=== PATIENT | female | born 1950 | race Caucasian/White ===

== ENCOUNTER 2024-11-02 16:57 | Inpatient (IN) | payer OTHER, MEDICARE ==
[2024-11-02 17:56] LABS: Absolute Eosinophils 0.1 K/uL (0-0.5); Absolute Lymphocytes (CBC) 0.9 K/uL (0.7-4.9); Absolute Monocytes 0.4 K/uL (0.1-1.3); Absolute Neutrophil 3.8 K/uL (1.8-8.0); Basophils % 0.7 % (0-1.3); Eosinophils % 1.4 % (0-4.4); Hematocrit 41.9 % (36.0-45.0); Hemoglobin 14.3 g/dL (12.0-15.0); MCH 30.7 pg (27.0-35.0); MCHC 34.2 g/dL (32.0-36.0); MCV 89.9 fL (80-100); MPV 8.4 fL (7.6-11.3); Monocytes % 7.4 % (3.3-12.3); Neutrophils % 72.5 % (41.7-73.7); Nucleated Red Blood Cells % 0.1 % (0-0); Platelets 179 thou/uL (152-406); RBC Red Blood Cell Count 4.66 M/uL (3.86-4.86); Red Cell Distribution Width 14.2 % (12.1-15.2)
[2024-11-02 18:02] LABS: Specific Gravity 1.025 (1.005-1.030); Urine Bacteria >50 /HPF (<20); Urine Bilirubin NEGATIVE (Negative); Urine Blood Trace (Negative); Urine Clarity Extremely Turbid (Clear); Urine Color Yellow (Yellow); Urine Culture Reflex Order REFLEXED; Urine Glucose NEGATIVE (Negative); Urine Ketones NEGATIVE (Negative); Urine Microscopic Reflex YN ORDER UMIC; Urine Mucus 3+ /HPF (None Seen); Urine Nitrite 2+ (Negative); Urine Protein NEGATIVE (Negative); Urine Urobilinogen Normal (Normal); Urine WBC >50 /HPF (<5); Urine pH 5.5 (5.0-7.0)
[2024-11-02 18:07] LABS: PT Prothrombin Time 17.4 SECONDS (10-13.0); Protime INR 1.56
--- NOTE | 2024-11-02 18:11 | RAD REPORT ---
EXAM: Chest Single View HISTORY: 74 years Female syncope COMPARISON: 10/26/2020 FINDINGS: LUNGS/PLEURA: The lungs are clear. No pleural effusions or pneumothorax. No pulmonary edema. CARDIAC/MEDIASTINUM: Mild cardiomegaly UPPER ABDOMEN: No significant abnormality. BONES: Advanced left shoulder degenerative changes. LINES/TUBES/OTHER: N/A IMPRESSION: No evidence of acute cardiopulmonary disease. No significant change from prior.
[2024-11-02 18:25] LABS: Albumin 3.6 g/dL (3.4-5.0); Albumin/Globulin Ratio 1.2 (1.1-1.8); Anion Gap 8.9 mEq/L (5.0-15.0); Bilirubin Direct 0.2 mg/dL (0-0.2); Bilirubin Indirect, Calculated 0.5 mg/dL (0.2-0.8); Bilirubin Total 0.7 mg/dL (0.2-1.0); Globulin 3.1 g/dL (2.3-3.5); Magnesium 2.1 mg/dL (1.6-2.4); Potassium 3.9 mEq/L (3.5-5.1); Protein, Total 6.7 g/dL (6.4-8.2); Troponin High Sensitivity 5.3 pg/mL (<58.9)
--- NOTE | 2024-11-02 18:34 | RAD REPORT ---
EXAMINATION: Head C Spine Mpr Wo Con CLINICAL INDICATION: Female, 74 years old. SYNCOPE TECHNIQUE: Axial CT images from the skull base to the vertex without intravenous contrast. Axial CT i mages through the cervical spine were obtained without intravenous contrast. Sagittal and coronal reformatted images were created from the data set. Coronal and sagittal reformatted images were creat ed from the data set. One or more of the following dose reduction techniques were used: Automated exposure control, adjustment of the mA and/or kV according to patient size, and/or iterative reconstr uction. Unless otherwise specified, incidental findings do not require dedicated imaging follow-up. [id number]. COMPARISON: No prior exam. FINDINGS: Head: INTRACRANIAL: No acute intracranial hemorrhage. No hydrocephalus. No mass effect or midline shift. No significant white matter disease. VASCULATURE: No visualized abnormalities in the arteries or dural venous sinuses. SCALP/SKULL: No calvarial fracture identified. No acute soft tissue abnormality. SINUSES: The visualized paranasal sinuses are mostly clear. No significant mastoid fluid. Cervical spine: ALIGNMENT: The cervical spine has normal alignment without scoliosis or spondylolisthesis. BONE: Vertebral body heights are maintained. No aggressive osseous lesions. DEGENERATIVE: Multilevel cervical spondylosis with evidence of bilateral neural foraminal narrowing. No high grade central spinal stenosis. SOFT TISSUE: No significant abnormalities in the soft tissue of the neck. The visualized lung apices are clear. IMPRESSION: No acute intracranial abnormality. No acute fracture or traumatic malalignment of the cervical spine.
--- NOTE | 2024-11-02 19:37 | ER ---
Nurse's Notes [facility] Name: Ya Campbell Age: 74 yrs Sex: Female : 1950 Arrival Date: 11/02/2024 Time: 16:57 Bed 14 Private MD: Diagnosis: Syncope;UTI/ Urinary tract infection, site not specified Presentation: 11/02 17:11 Chief complaint: EMS states: FALL WITH UNKNOWN LOC + HIT HEAD NOTED LEFT ABOVE EYE LAC. db IS ON BLOOD THINNERS. REPEATED FALLS STARTED IN AUGUST. Coronavirus screen: Client denies travel out of the [place] in the last 14 days. At this time, the client does not indicate any symptoms associated with coronavirus-19. Ebola Screen: Patient negative for fever greater than or equal to 101.5 degrees Fahrenheit, and additional compatible Ebola Virus Disease symptoms Patient denies exposure to infectious person. Patient denies travel to an Ebola-affected area in the 21 days before illness onset. No symptoms or risks identified at this time. Initial Sepsis Screen: Does the patient meet any 2 criteria? No. Patient's initial sepsis screen is negative. Does the patient have a suspected source of infection? No. Patient's initial sepsis screen is negative. Risk Assessment: Do you want to hurt yourself or someone else? Patient reports no desire to harm self or others. Onset of symptoms was November 02, 2024. 17:11 Method Of Arrival: EMS: [facility] db 17:11 Acuity: CRIS 3 db 20:00 Mechanism of Injury: Fall from standing position. [facility] 20:00 Care prior to arrival: None. Trauma event details: Injury occurred in the county of [address] Triage Assessment: 17:30 General: Appears in no apparent distress. comfortable, Behavior is calm, cooperative. db Derm: Wound noted middle aspect of left eyebrow. 20:00 Pain: Complains of pain in head. [facility] Historical: - Allergies: 17:30 No Known Allergies; db - Home Meds: 17:30 Xarelto oral [Active]; amiodarone oral [Active]; db - PMHx: 17:30 Atrial fibrillation; db - Immunization history:: Adult Immunizations unknown. - Infectious Disease History:: Denies. - Immunization history: Last tetanus immunization: unknown. - Social history:: Smoking status: Patient denies any tobacco usage or history of. Screenin:00 [facility] ED Fall Risk Assessment (Adult) History of falling in the last 3 months, rg5 including since admission Yes- single mechanical fall (1 pt) Confusion or Disorientation No (0 pts) Intoxicated or Sedated No (0 pts) Impaired Gait Yes (1 pt) Mobility Assist Device Used Yes (1 pt) Altered Elimination No (0 pt) Score/Fall Risk Level 0 - 2 = Low Risk Oriented to surroundings, Maintained a safe environment, Hourly rounding (assess needs \T\ fall precautionary measures) done. 20:00 Abuse screen: Denies threats or abuse. Nutritional screening: No deficits noted. rg5 Tuberculosis screening: No symptoms or risk factors identified. Primary Survey: 20:00 NO uncontrolled hemorrhage observed. rg5 20:00 A: The client is awake and alert. The airway is patent. Breathing/Chest: Spontaneous rg5 respiratory effort, equal unlabored respirations, breath sounds clear bilaterally, regular pattern, symmetrical chest rise and fall. Circulation: No external hemorrhage present. Regular and strong central pulse, skin warm/dry/normal color. Disability Pupils are equal, round, reactive to light and accommodation. Client is alert. Exposure/Environment: All clothing and personal items were removed. Forensic evidence collection is not deemed to be indicated at this time. Items placed in patient belonging bag. There is no evidence of uncontrolled external bleeding. 21:00 Reassessment Alertness and Airway: Awake and alert. The airway is patent. Breathing: rg5 Spontaneous respiratory effort, equal unlabored respirations, breath sounds clear bilaterally, regular pattern with symmetrical chest rise and fall. Respiratory effort Spontaneous Breath sounds Clear Respiratory pattern Regular Chest inspection Symmetrical Circulation: No external hemorrhage noted. Regular and strong central pulse, skin warm/dry/normal color. Disability: Pupils Pupils are equal, round, reactive to light and accomodation. Alert. Assessment: 17:30 Reassessment: Patient appears in no apparent distress at this time. PT ASSISTED TO db BEDPAN. Vital Signs: 17:11 BP 133 / 67; Pulse 77; Resp 16; Temp 98; Pulse Ox 98% ; Weight 92.99 kg; Height 5 ft. 8 db in. ; 19:45 BP 142 / 68 Standing; Pulse 76; rg5 19:49 BP 134 / 65 Sitting; Pulse 72; rg5 19:52 BP 138 / 66; Pulse 82; rg5 21:00 BP 125 / 63; Pulse 76; Resp 18; Pulse Ox 100% on R/A; rg5 22:30 BP 131 / 69; Pulse 65; Resp 18; Pulse Ox 100% ; Pain 0/10; rg5 11/03 00:00 BP 148 / 65; Pulse 68; Resp 18; Pulse Ox 100% on R/A; Pain 0/10; rg5 11/02 17:11 Body Mass Index 31.17 (92.99 kg, 172.72 cm) db 22:30 Pain Scale: Adult rg5 11/03 00:00 Pain Scale: Adult rg5 [place] Coma Score: 11/02 20:00 Eye Response: spontaneous(4). Motor Response: obeys commands(6). Verbal Response: rg5 oriented(5). Total: 15. Trauma Score (Adult): 20:00 Eye Response: spontaneous(1); Verbal Response: oriented(1); Motor Response: obeys rg5 commands(2); Systolic BP: > 89 mm Hg(4); Respiratory Rate: 10 to 29 per min(4); [place] Score: 15; Trauma Score: 12 ED Course: 17:11 Patient arrived in ED. db 17:12 Hamilton Roe PA is PHCP. cp 17:13 Lawrence Gray MD is Attending Physician. cp 17:30 Triage completed. db 17:32 Arm band placed on Patient placed in an exam room. Antipyretics given from triage as db ordered by an ER provider. 17:40 Gloria Vigil, RN is Primary Nurse. db 17:46 Initial lab(s) drawn, by wi, sent to lab. Urine collected: clean catch specimen, clear, db EKG done, by ED staff, reviewed by Hamilton BELLA. Inserted saline lock: 20 gauge in right antecubital area, using aseptic technique. Blood collected. Flushed with 10 mL NS. 17:47 XRAY Chest (1 view) In Process Unspecified. EDMS 18:12 CT Head C Spine In Process Unspecified. EDMS 19:36 Kole Bonilla MD is Hospitalizing Provider. cp 20:00 Patient has correct armband on for positive identification. Bed in low position. Call rg5 light in reach. Door closed. Noise minimized. Warm blanket given. 20:00 No provider procedures requiring assistance completed. rg5 20:00 Patient maintains SpO2 saturation greater than 95% on room air. rg5 20:00 Thermoregulation: warm blanket given to patient. rg5 11/03 00:22 Provided Education on: needs for admit. rg5 00:22 Patient admitted, IV remains in place. intact, No redness/swelling at site. rg5 Administered Medications: 11/02 19:49 Drug: NS 0.9% IV 250 ml IV at calculated rate once; to be given as a bolus over 30 rg5 minutes Route: IV; Rate: calculated rate; Site: right antecubital; 20:13 Follow up: IV Status: Completed infusion; IV Intake: 250ml rg5 19:50 Drug: Rocephin IV 1 grams IV at calculated rate once; Given slow IV push per pharmacy rg5 instructions Route: IV; Rate: calculated rate; Site: right antecubital; 20:14 Follow up: IV Status: Completed infusion; IV Intake: 50ml rg5 Medication: 11/03 00:22 VIS not applicable for this client. rg5 Intake: 11/02 20:00 PO: 250ml (Water); Total: 250ml. rg5 20:13 IV: 250ml; Total: 500ml. rg5 20:14 IV: 50ml; Total: 550ml. rg5 Outcome: 19:37 Decision to Hospitalize by Provider. tammy 11/03 00:22 Admitted to Med/surg accompanied by nurse, rg5 Condition: stable Instructed on the need for admit, 00:35 Patient's length of stay in the Emergency Department was greater than 2 hours. rg5 admittedPatient's length of stay extended due to 00:40 Patient left the ED. rg5 Signatures: Dispatcher [employer] EDVT Hamilton Roe PA PA cp Benton, Danielle, RN RN Norbert Pinedo RN RN rg5
--- NOTE | 2024-11-02 19:38 | EDPHYS ---
Physician Documentation [facility] Name: Ya Campbell Age: 74 yrs Sex: Female : 1950 Arrival Date: 11/02/2024 Time: 16:57 Bed 14 Private MD: ED Physician Lawrence Gray HPI: 11/02 17:25 This 74 yrs old Female presents to ER via EMS with complaints of Fall Injury. cp 17:25 Patient is a 74-year-old female with a past medical history significant for chronic cp atrial fibrillation. Patient presents to the emergency department and reports that she got up and started walking toward the kitchen and became lightheaded the next thing she knew she woke up on the floor. Patient denies chest pain, abdominal pain and/or headache prior to waking up on the floor. Historical: - Allergies: 17:30 No Known Allergies; db - Home Meds: 17:30 Xarelto oral [Active]; amiodarone oral [Active]; db - PMHx: 17:30 Atrial fibrillation; db - Immunization history:: Adult Immunizations unknown. - Infectious Disease History:: Denies. - Immunization history: Last tetanus immunization: unknown. - Social history:: Smoking status: Patient denies any tobacco usage or history of. ROS: 17:30 Constitutional: Negative for body aches, chills, fever, poor PO intake, cp 17:30 Eyes: Negative for injury, pain, redness, and discharge, cp 17:30 Neck: Negative for pain with movement, pain at rest, stiffness, 17:30 Cardiovascular: Negative for chest pain, edema, palpitations, 17:30 Respiratory: Negative for cough, shortness of breath, wheezing, 17:30 Abdomen/GI: Negative for abdominal pain, vomiting, diarrhea, constipation, black/tarry stool, rectal bleeding, 17:30 Skin: Positive for laceration(s), of the left temporal area, 17:30 Neuro: Positive for headache, syncope, 17:30 All other systems are negative, Exam: 17:33 Constitutional: The patient appears in no acute distress, alert, awake, cp non-diaphoretic, non-toxic, well developed, well nourished, obese, 17:33 Head/face: Noted is a laceration(s), that is linear, of the left hoahaoism, swelling, cp that is mild, of the left hoahaoism, 17:33 Eyes: Periorbital structures: appear normal, Pupils: equal, round, and reactive to light and accomodation, Extraocular movements: intact throughout, Sclera: no appreciated abnormality, Lids and lashes: appear normal, bilaterally, 17:33 ENT: External ear(s): are unremarkable, Ear canal(s): are normal, clear, TM's: dullness, bilaterally, Nose: is normal, Mouth: Lips: moist, Oral mucosa: moist, Posterior pharynx: Airway: no evidence of obstruction, patent, 17:33 Neck: C-spine: vertebral tenderness, is not appreciated, crepitus, is not appreciated, 17:33 Chest/axilla: Inspection: normal, Palpation: crepitus, is not appreciated, tenderness, is not appreciated, 17:33 Cardiovascular: Rate: normal, Rhythm: regular, 17:33 Respiratory: the patient does not display signs of respiratory distress, Respirations: normal, no use of accessory muscles, no retractions, labored breathing, is not present, Breath sounds: are clear throughout, no decreased breath sounds, no stridor, no wheezing, 17:33 Abdomen/GI: Inspection: abdomen appears normal, Palpation: abdomen is soft and non-tender, in all quadrants, 17:33 Back: vertebral tenderness, is not appreciated, 17:33 Musculoskeletal/extremity: Exam is negative for decreased range of motion, deformity, injury, 17:33 Neuro: Orientation: to person, place, situation, Mentation: able to follow commands, Cerebellar function: Romberg testing is negative, normal finger to nose testing, Motor: moves all fours, strength is normal, 17:52 ECG was reviewed by the Attending Physician. cp Vital Signs: 17:11 BP 133 / 67; Pulse 77; Resp 16; Temp 98; Pulse Ox 98% ; Weight 92.99 kg; Height 5 ft. 8 db in. ; 19:45 BP 142 / 68 Standing; Pulse 76; rg5 19:49 BP 134 / 65 Sitting; Pulse 72; rg5 19:52 BP 138 / 66; Pulse 82; rg5 21:00 BP 125 / 63; Pulse 76; Resp 18; Pulse Ox 100% on R/A; rg5 22:30 BP 131 / 69; Pulse 65; Resp 18; Pulse Ox 100% ; Pain 0/10; rg5 11/03 00:00 BP 148 / 65; Pulse 68; Resp 18; Pulse Ox 100% on R/A; Pain 0/10; rg5 11/02 17:11 Body Mass Index 31.17 (92.99 kg, 172.72 cm) db 22:30 Pain Scale: Adult rg5 11/03 00:00 Pain Scale: Adult rg5 [place] Coma Score: 11/02 20:00 Eye Response: spontaneous(4). Motor Response: obeys commands(6). Verbal Response: rg5 oriented(5). Total: 15. Trauma Score (Adult): 20:00 Eye Response: spontaneous(1); Verbal Response: oriented(1); Motor Response: obeys rg5 commands(2); Systolic BP: > 89 mm Hg(4); Respiratory Rate: 10 to 29 per min(4); [place] Score: 15; Trauma Score: 12 Laceration: 19:50 Wound Repair of 2.5cm ( 1.0in ) subcutaneous laceration to left hoahaoism. Linear shaped.. cp Distal neuro/vascular/tendon intact. Skin closed with thin layer Adhesive skin closure using Dermabond. Patient tolerated well. MDM: 19:37 Medical Screening Exam initiated 19:37 Data reviewed: vital signs, nurses notes, lab test result(s), EKG, radiologic studies, cp CT scan, plain films, and as a result, I will admit patient. 19:37 Consideration of Admission/Observation Patient was admitted/placed on observation. cp Management of patient was discussed with the following: Primary Care Provider: DR Bonilla who will admit after discussion. I considered the following discharge prescriptions or medication management in the emergency department Medications were administered in the Emergency Department. See MAR. Independent interpretation of the following test(s) in the Emergency Department EKG: See my EKG interpretation above. Counseling: I had a detailed discussion with the patient and/or guardian regarding the historical points, exam findings, and any diagnostic results supporting the discharge/admit diagnosis, lab results, radiology results. Response to treatment: the patient's symptoms have markedly improved after treatment, and as a result, I will admit patient. 11/02 17:23 Order name: Basic Metabolic Panel; Complete Time: 18:37 cp 11/02 18:37 Interpretation: Normal except: BUN 22; CRE 1.13; GFR 51. cp 11/02 17:23 Order name: CBC with Diff; Complete Time: 18:37 cp 11/02 19:13 Interpretation: Reviewed. 11/02 17:23 Order name: LFT's; Complete Time: 18:37 cp 11/02 19:13 Interpretation: Normal except: AST 11. cp 11/02 17:23 Order name: Magnesium; Complete Time: 18:37 cp 11/02 17:23 Order name: NT PRO-BNP; Complete Time: 18:37 cp 11/02 18:37 Interpretation: Reviewed. 11/02 17:23 Order name: PT-INR; Complete Time: 18:37 cp 11/02 17:23 Order name: Troponin HS; Complete Time: 18:37 cp 11/02 17:24 Order name: UA Rfx Sujit Cult if indicated; Complete Time: 18:37 cp 11/02 18:38 Interpretation: Normal except: [facility] Extremely Turbid; UBLD Trace; UNIT 2+; UESTR 500; cp UWBC >50; URBC 11-20; UBACT >50; MUCUS 3+. 11/02 18:07 Order name: Urine Culture [facility] 11/02 17:23 Order name: XRAY Chest (1 view); Complete Time: 18:37 cp 11/02 17:23 Order name: CT Head C Spine; Complete Time: 18:37 cp 11/02 20:13 Order name: CONS Physician Consult [facility] 11/02 17:23 Order name: Cardiac monitoring; Complete Time: 17:49 cp 11/02 17:23 Order name: EKG - Nurse/Tech; Complete Time: 17:49 cp 11/02 17:23 Order name: IV Saline Lock; Complete Time: 17:49 cp 11/02 17:23 Order name: Labs collected and sent; Complete Time: 17:49 cp 11/02 17:23 Order name: O2 Per Protocol; Complete Time: 17:49 cp 11/02 17:23 Order name: O2 Sat Monitoring; Complete Time: 17:49 cp 11/02 18:38 Order name: Orthostatics; Complete Time: 19:50 cp 11/02 20:06 Order name: Dermabond; Complete Time: 20:23 cp 11/02 20:06 Order name: Wound Care; Complete Time: 20:13 cp EC:52 Rate is 72 beats/min. Rhythm is regular. [place] interval is prolonged at 212 msec. QRS cp interval is prolonged at 150 msec. QT interval is prolonged. T waves are Inverted in leads aVL, aVR. Interpreted by me. Reviewed by me. Administered Medications: 19:49 Drug: NS 0.9% IV 250 ml IV at calculated rate once; to be given as a bolus over 30 rg5 minutes Route: IV; Rate: calculated rate; Site: right antecubital; 20:13 Follow up: IV Status: Completed infusion; IV Intake: 250ml rg5 19:50 Drug: Rocephin IV 1 grams IV at calculated rate once; Given slow IV push per pharmacy rg5 instructions Route: IV; Rate: calculated rate; Site: right antecubital; 20:14 Follow up: IV Status: Completed infusion; IV Intake: 50ml rg5 Disposition: 11/03 20:55 Chart complete. cp Disposition Summary: 11/02/24 19:37 Hospitalization Ordered Notes: Hospitalization Status: Observation cp Provider: Kole Bonilla cp Location: Telemetry/[facility] (observation) cp Condition: Stable cp Problem: new cp Symptoms: have improved cp Bed/Room Type: Standard cp Room Assignment: [id number](11/02/24 23:52) Diagnosis - Syncope cp - UTI/ Urinary tract infection, site not specified cp Forms: - Medication Reconciliation Form cp - SBAR form cp - Leadership Thank You Letter cp Addendum: 11/06/2024 23:43 Co-signature as Attending Physician, Lawrence Gray MD I reviewed the patient's care r n provided by the Advanced Practice Provider and agree with the diagnosis and treatment plan. Signatures: Dispatcher [employer] Lola Dee RN RN kl Nieto, Roman, MD MD rn Page, Corey, PA PA cp Gloria Vigil RN RN db Gallardo, Rommel, RN RN rg5 Corrections: (The following items were deleted from the chart) 11/02 17:23 17:23 BASIC METABOLIC PANEL+C.LAB.BRZ ordered. EDMS EDMS 17:23 17:23 CBC+H.LAB.BRZ ordered. EDMS EDMS 17:23 17:23 HEPATIC FUNCTION+C.LAB.BRZ ordered. EDMS EDMS 17:23 17:23 MAGNESIUM+C.LAB.BRZ ordered. EDMS EDMS 17:23 17:23 PROBNP+C.LAB.BRZ ordered. EDMS EDMS : 17:23 PROTIME (+INR)+COAG.LAB.BRZ ordered. EDMS EDMS : 17:23 Troponin High Sensitivity+C.LAB.BRZ ordered. EDMS EDMS : 17:23 Chest Single View+RAD.RAD.BRZ ordered. EDMS EDMS 17:24 17:24 Head C Spine MPR Wo Con+CT.RAD.BRZ ordered. EDMS EDMS 23:52 19:37 cp kl
[2024-11-02] MEDS ORDERED: NA CHLORIDE 0.9% 250 ML ONE (19:45)
[2024-11-02] MEDS ORDERED: CEFTRIAXONE 1000 MG/VIAL ONE (19:45)
[2024-11-02] MEDS ORDERED: NA CHLORIDE 0.9% 50 ML ONE (19:45)
[2024-11-02] MEDS ORDERED: DERMABOND SKIN ADHESIVE TOP ONE (20:15)
[2024-11-02] MEDS ORDERED: ONDANSETRON 4 MG/2 ML VIAL IV PRN (21:33)
[2024-11-03 01:22] VITALS: BMI 31.1
[2024-11-03 04:20] LABS: Absolute Eosinophils 0.1 K/uL (0-0.5); Absolute Lymphocytes (CBC) 1.2 K/uL (0.7-4.9); Absolute Monocytes 0.5 K/uL (0.1-1.3); Absolute Neutrophil 4.1 K/uL (1.8-8.0); Basophils % 0.8 % (0-1.3); Hematocrit 39.2 % (36.0-45.0); Hemoglobin 13.3 g/dL (12.0-15.0); MCV 91.2 fL (80-100); Monocytes % 7.8 % (3.3-12.3); Neutrophils % 69.4 % (41.7-73.7); Platelets 162 thou/uL (152-406); RBC Red Blood Cell Count 4.29 M/uL (3.86-4.86); Red Cell Distribution Width 14.2 % (12.1-15.2)
[2024-11-03 04:43] LABS: Anion Gap 6.3 mEq/L (5.0-15.0); Potassium 4.3 mEq/L (3.5-5.1); Troponin High Sensitivity 4.9 pg/mL (<58.9)
[2024-11-03] MEDS: ASPIRIN EC 81 MG TAB PO SCH (08:00)
[2024-11-03] MEDS: CEFTRIAXONE 1,000 MG in NA CHLORIDE 0.9% 50 ML IVPB SCH (08:00)
--- NOTE | 2024-11-03 11:07 | P.HP ---
Patient History Date of Service: 11/03/24 Reason for admission: PASSED OUT, FOUND ON THE FLOOR History of Present Illness: BEVERLY HAS HAD A FIB MANAGED BY DR. FLANNERY. I CALLED HIS OFFICE WHEN SHE WAS AT OFFICE FOR FALLS. SHE HAD RAPID A FIB AT THAT TIME. SHE WAS SENT TO DR. BECKWITH. SHE WHILE WALKING FROM BR OUT PASSED OUT AND WAS FOUND ON THE FLOOR WITH LACERATION OF THE HEAD. SHE HAS NO CHEST PAIN. SHE DOES NOT RECALL WHAT EXACTLY HAPPENED. Allergies No Known Allergies Allergy (Unverified 08/06/11 21:45) Home medications list reviewed: Yes - Past Medical/Surgical History Has patient received pneumonia vaccine in the past: Yes Diabetic: No -: AFIB -: syncopal episodes/blacks out -: tonsillectomy - Family History Family History: Reviewed- Non-Contributory - Social History Smoking Status: Never smoker Alcohol use: Yes CD- Drugs: No Caffeine use: Yes Place of Residence: Home Review of Systems 10-point ROS is otherwise unremarkable Physical Examination - Vital Signs Temperature: 98.4 F Blood Pressure: 133/59 Pulse: 69 Respirations: 16 Pulse Ox (%): 99 - Physical Exam General: Mild distress, Obese HEENT: Atraumatic, PERRLA, Mucous membr. moist/pink, EOMI, Sclerae nonicteric Neck: Supple, 2+ carotid pulse no bruit, No LAD, Without JVD or thyroid abnormality Respiratory: Clear to auscultation bilaterally, Normal air movement Cardiovascular: Regular rate/rhythm, Normal S1 S2 Gastrointestinal: Normal bowel sounds, No tenderness Musculoskeletal: No tenderness Integumentary: No rashes Neurological: Normal gait, Normal speech, Normal strength at 5/5 x4 extr, Normal tone, Normal affect Lymphatics: No axilla or inguinal lymphadenopathy - Studies Laboratory Data (last 24 hrs) 11/02/24 11/02/24 11/02/24 17:42 17:42 17:42 WBC 5.20 Hgb 14.3 Hct 41.9 Plt Count 179 PT 17.4 H INR 1.56 Sodium 139 Potassium 3.9 BUN 22 H Creatinine 1.13 H Glucose 104 Magnesium 2.1 Total Bilirubin 0.7 AST 11 L ALT 23 Alkaline Phosphatase 103 Assessment and Plan - Problems (Diagnosis) (1) Syncope Current Visit: Yes Status: Acute Plan: SHE FELL AT HOME TWICE. SHE HAS A FIB THAT HAS BEEN UNCONTROLLED AT LAST VISIT. DR. FLANNERY AND DR BECKWITH ARE MANAGING THIS. I WILL CONSULT DR. INGRAM HERE. SHE MAY BE ORTHOSTATIC. LAB SHOWED DEHDYDRATION BUT BETTER TODAY. DO EEG MRI IN AM. RULE OUT STROKE. SHE IS ALREADY ON XARELTO AT HOME. DW AT BEDSIDE. (2) A-fib Current Visit: Yes Status: Acute - Advance Directives Does patient have a Living Will: No Does patient have a Durable POA for Healthcare: No
--- NOTE | 2024-11-03 11:39 | P.CNS ---
Date of Consult: 11/03/24 Chief Complaint: PASSED OUT, FOUND ON THE FLOOR History of Present Illness: Patient with PMH of HTN, presented with repeated falls, she denies any cardiac symptoms, no chest pain, no palpitations, no SOB,no LAFLEUR, patient report that she has been seeing a ends breakage clerk who has been helping working out her multiple falls, can not recall if she is passing out or just feeling dizzy and weak. Allergies No Known Allergies Allergy (Unverified 08/06/11 21:45) Home medications list reviewed: Yes - Past Medical/Surgical History Diabetic: No -: AFIB -: syncopal episodes/blacks out -: tonsillectomy - Social History Alcohol use: Yes CD- Drugs: No Caffeine use: Yes Place of Residence: Home Review of Systems 10-point ROS is otherwise unremarkable Physical Examination Temp Pulse Resp BP Pulse Ox 98.4 F 69 16 133/59 L 99 11/03/24 11:07 11/03/24 11:07 11/03/24 11:07 11/03/24 11:07 11/03/24 11:07 General: Alert, In no apparent distress HEENT: Atraumatic, PERRLA, Mucous membr. moist/pink, EOMI, Sclerae nonicteric Neck: Supple, 2+ carotid pulse no bruit, No LAD, Without JVD or thyroid abnormality Respiratory: Clear to auscultation bilaterally, Normal air movement Cardiovascular: Regular rate/rhythm, Normal S1 S2 Gastrointestinal: Normal bowel sounds, No tenderness Musculoskeletal: No tenderness Integumentary: No rashes Neurological: Normal gait, Normal speech, Normal tone, Normal affect Lymphatics: No axilla or inguinal lymphadenopathy Laboratory Data (last 24 hrs) 11/02/24 11/02/24 11/02/24 17:42 17:42 17:42 WBC 5.20 Hgb 14.3 Hct 41.9 Plt Count 179 PT 17.4 H INR 1.56 Sodium 139 Potassium 3.9 BUN 22 H Creatinine 1.13 H Glucose 104 Magnesium 2.1 Total Bilirubin 0.7 AST 11 L ALT 23 Alkaline Phosphatase 103 - Problems (1) Syncope Current Visit: Yes Status: Acute Plan: continue to monitor patient on telemetery. continue to follow up with her ends breakage clerk as she will need 30 days event monitor. or even might benefit from a loop recorder.
[2024-11-03 20:22] LABS: Specific Gravity 1.013 (1.005-1.030); Sqamous Epithelial <5 /HPF (None Seen); Transitional Epithelial <5 /HPF (None Seen); Urine Bacteria <20 /HPF (<20); Urine Bilirubin NEGATIVE (Negative); Urine Blood 1+ (Negative); Urine Clarity Clear (Clear); Urine Color Light-Yellow (Yellow); Urine Culture Reflex Order NOT NEEDED; Urine Glucose NEGATIVE (Negative); Urine Ketones NEGATIVE (Negative); Urine Microscopic Reflex YN ORDER UMIC; Urine Nitrite NEGATIVE (Negative); Urine Protein NEGATIVE (Negative); Urine Urobilinogen Normal (Normal); Urine WBC <5 /HPF (<5)
[2024-11-04] MEDS: RIVAROXABAN 20 MG TABLET PO SCH (08:53)
[2024-11-04] MEDS: ATORVASTATIN 40 MG TAB PO SCH (08:53)
[2024-11-04] MEDS: LEVOTHYROXINE SOD 0.112 MG TAB PO SCH (08:53)
[2024-11-04] MEDS: AMIODARONE HCL 200 MG TAB PO SCH (08:54)
[2024-11-04] MEDS: NEBIVOLOL HCL 5 MG TAB PO SCH (08:54)
[2024-11-04 10:01] VITALS: O2SAT 98
--- NOTE | 2024-11-04 10:51 | P.PN ---
Subjective Date of Service: 11/04/24 Chief Complaint: PASSED OUT, FOUND ON THE FLOOR Subjective: No new changes Review of Systems 10-point ROS is otherwise unremarkable Physical Examination - Vital Signs Temperature: 98.3 F Blood Pressure: 140/57 Pulse: 64 Respirations: 14 Pulse Ox (%): 98 - Physical Exam General: Alert, In no apparent distress HEENT: Atraumatic, PERRLA, EOMI Neck: Supple, JVD not distended Respiratory: Clear to auscultation bilaterally, Normal air movement Cardiovascular: Regular rate/rhythm, Normal S1 S2 Gastrointestinal: Normal bowel sounds, No tenderness Musculoskeletal: No tenderness Integumentary: No rashes Neurological: Normal speech, Normal tone, Normal affect Lymphatics: No axilla or inguinal lymphadenopathy - Studies Medications List Reviewed: Yes Assessment And Plan - Current Problems (Diagnosis) (1) Syncope Current Visit: Yes Status: Acute Plan: Patient tele overnight shows Sinus rhythm with no pauses no arrhythmias 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 or even might benefit from a loop recorder. (2) A-fib Current Visit: Yes Status: Acute Plan: continue Amiodarone 100 mg daily continue Xarelto 20 mg daily
--- NOTE | 2024-11-04 12:56 | RAD REPORT ---
EXAMINATION: MRI BRAIN WITHOUT CONTRAST CLINICAL INDICATION: Female, 74 years old.[facility] MAIN N SYNCOPE TECHNIQUE: Multiplanar multisequence MR images of the brain were obtained without intravenous contras t. Unless otherwise specified, incidental findings do not require dedicated imaging follow-up. COMPARISON: Head CT 11/02/2024 FINDINGS: INTRACRANIAL: Midline structures are unremarkable. Diffusion-weighted images show no acute or early subacute infarction. There is mild brain atrophy with mild nonspecific T2/FLAIR hyperintensities in the periventricular and deep white matter regions, likely representing chronic microvascular ischemic changes. There is no mass effect or midline shift. No abnormal extraaxial fluid collection. VASCULATURE: Normal signal voids in the larger intracranial arteries and dural venous sinuses. SINUSES: The paranasal sinuses and mastoid air cells are predominantly clear. BONE: The marrow signal pattern is within normal limits. IMPRESSION: No significant intracranial abnormalities.
[2024-11-04 16:30] VITALS: BP 103/50; TEMP 99
--- NOTE | 2024-11-04 16:57 | P.DS ---
Admission Date: 11/03/24 Discharge Date: 11/04/24 Disposition: ROUTINE DISCHARGE Discharge Condition: FAIR Reason for Admission: PASSED OUT, FOUND ON THE FLOOR - Problems (1) Syncope Current Visit: Yes Status: Acute (2) A-fib Current Visit: Yes Status: Acute Brief History of Present Illness: BEVERLY HAS HAD A FIB MANAGED BY DR. FLANNERY. I CALLED HIS OFFICE WHEN SHE WAS AT OFFICE FOR FALLS. SHE HAD RAPID A FIB AT THAT TIME. SHE WAS SENT TO DR. BECKWITH. SHE WHILE WALKING FROM BR OUT PASSED OUT AND WAS FOUND ON THE FLOOR WITH LACERATION OF THE HEAD. SHE HAS NO CHEST PAIN. SHE DOES NOT RECALL WHAT EXACTLY HAPPENED. MRI SHOWED NO STROKE. DR. BETANCOURT WILL DO EEG IN OFFICE. SHE IS ABLE TO AMBULATE. I ASKED WENDIE TO DO ORTHOSTATIC BP CHECK AND LET ME KNOW. TROP NEG, NO OK. Vital Signs/Physical Exam: Temp Pulse Resp BP Pulse Ox 99 F 54 12 103/50 L 96 11/04/24 16:00 11/04/24 16:00 11/04/24 16:00 11/04/24 16:00 11/04/24 16:00 Laboratory Data at Discharge: WBC 5.90 thou/uL (4.3-10.9) 11/03/24 03:58 Hgb 13.3 g/dL (12.0-15.0) 11/03/24 03:58 Hct 39.2 % (36.0-45.0) 11/03/24 03:58 Plt Count 162 thou/uL (152-406) 11/03/24 03:58 PT 17.4 SECONDS (10-13.0) H 11/02/24 17:42 INR 1.56 11/02/24 17:42 Sodium 141 mEq/L (136-145) 11/03/24 03:58 Potassium 4.3 mEq/L (3.5-5.1) 11/03/24 03:58 BUN 19 mg/dL (7-18) H 11/03/24 03:58 Creatinine 0.90 mg/dL (0.55-1.02) 11/03/24 03:58 Glucose 94 mg/dL (74-106) 11/03/24 03:58 Magnesium 2.1 mg/dL (1.6-2.4) 11/02/24 17:42 Total Bilirubin 0.7 mg/dL (0.2-1.0) 11/02/24 17:42 AST 11 U/L (15-37) L 11/02/24 17:42 ALT 23 U/L (13-56) 11/02/24 17:42 Alkaline Phosphatase 103 U/L (45-117) 11/02/24 17:42 Home Medications: Amiodarone HCl [Pacerone] 0.5 tab PO DAILY 11/03/24 Atorvastatin Calcium 1 tab PO DAILY 11/03/24 Levothyroxine [Synthroid*] 1 tab PO DAILY 11/03/24 Nebivolol HCl 0.5 tab PO SEECOM 11/03/24 Rivaroxaban [Xarelto] 1 tab PO DAILY 11/03/24 Followup: Kole Bonilla MD [Primary Care Provider] -
--- NOTE | 2024-11-05 01:20 | CON ---
Reason For Consultation: Consultation was called because of multiple syncopal episodes. History Of Present Illness: Ms. Campbell is a 74-year-old patient with chronic atrial fibrillation, on Xarelto, anticoagulation, who has had 3 similar episodes of syncope and collapse. The first episode occurred on September 02, 2024, while bending to put some food away in the refrigerator. Per , yair segovia was actually at a cabinet door, which was open when she bent down and apparently lost consciousness . She hit the left side of her torso and injured and bruised her ribs. She was somewhat disoriented for short while, but regained awareness and was able to interact with him properly. She had 2 other similar episodes, one while at her backyard and was taking care of her dogs when she bent forward an d the episode occurred. She had another similar episode at home while her was fishing. Bloo d pressures taken after the episodes showed systolic in the 90s. She remembered feeling a little diz zy or oozy before the episode occurred. She is not sure if she lost urine function during one of the episodes. She denies any tonic-clonic activity or tongue biting that she is aware of. Her has not witnessed any such episodes. She is being evaluated by cardiology service for potential card iac etiology. Past Medical History: As noted above. Allergies: NO KNOWN DRUG ALLERGIES. Medications At Home: Amiodarone and Xarelto. Social History: No alcohol, tobacco, or IV drug use. Family History: Noncontributory. Laboratory Studies: Complete blood count with differential is completely normal. INR 1.57. Consumer Credit Counselor natividad did show mild dehydration with creatinine 1.13 and BUN 22. GFR 51. She has been rehydrated wit h IV fluids. Has BUN of 19 and creatinine 0.90, sodium and potassium normal, chloride 110. Liver fu nction studies unremarkable. Beta-natriuretic peptide elevated 1067. Urinalysis did show urinary tr act infection with esterase 500, white blood cell count greater than 50, greater than 50 bacteria, 3+ mucus, trace blood, 2+ nitrite and she had pending cultures. Medications: She did receive a gram of Rocephin every 12 hours while hospitalized for urinary tract infection. Continue the aspirin, atorvastatin, Synthroid, Zofran, and the amiodarone along with Xare lto. Review of Systems: As noted, she had the episodes of lightheadedness on standing, a few episodes and then of course incl ude syncopal episodes. She denied any focal deficits in the face, arm, or leg. No numbness or weakn ess. Physical Examination: Vital Signs: Blood pressure is 103/50, pulse of 54, respiratory rate 12, temperature 99, oxygen satu ration 96%. Weight 205 pounds, height 5 feet, BMI 31.2. General: Ms. Campbell is resting in bed. is at bedside. HEENT: She is normocephalic, atraumatic. Sclerae anicteric. Oropharynx pink and moist. Neck: Supple. Chest: Clear. Heart: Irregularly irregular. Extremities: Show no clubbing, cyanosis, or edema. Neurological: She has no focal neurological deficits. Intact cranial nerves. Motor, coordination, sensory, and gait exam are all normal. X-ray And Imaging Studies: She had a brain MRI done on 11/04/2024 without contrast. This study was unremarkable whatsoever. Nonspecific mild T2 FLAIR hyperintensities in the periventricular and deep subcortical white matter consistent with chronic small vessel ischemic disease. CT scan of her cervi milana spine and head was unremarkable. No evidence of any fractures, dislocation, or significant abnor malities. Assessment: Ms. Campbell is a 74-year-old patient with repeated syncopal episodes, possibly of cardiova scular etiology. However, ELECTRICIAN CHIEF etiology should be considered. Episodes occurred apparently in the se tting of low blood pressure. Furthermore, she does have urinary tract infection, was being treated, that likely is a contributing factor. Plan: She should continue with aggressive management of urinary tract infection. Aspirin and Plavix may be continued at this point. The dyslipidemia medications should be continued in addition to her Xarelto and amiodarone. After discharge, she may follow up in Dr. Isabel's clinic for ambulatory video EEG monitoring study for an interictal possible abnormalities. She should maintain an event di leesa and return to clinic for further evaluation. BRITTANIE/LEONEL Voice ID: [id number] Report ID: [id number]
--- NOTE | 2024-11-12 12:57 | EKG ---
Test Date: 2024-11-02 Test Time: 17:46:26 [employer] Consultant: AM MEASUREMENT RESULTS: Intervals: Rate: 72 CT: 212 QRSD: 150 QT: 464 QTc: 508 [place]: P: 48 CT: 212 QRS: -30 T: 88 INTERPRETIVE STATEMENTS: Sinus rhythm with 1st degree AV block Left axis deviation Left bundle branch block Abnormal ECG Compared to ECG 04/04/2008 08:44:40 First degree AV block now present Left-axis deviation now present Left bundle-branch block now present Sinus arrhythmia no longer present Electronically Signed On 11-12-24 12:36:11 CDT by Baljinder Ferreira
== END 2024-11-04 18:05 | disposition home or self-care (01) | DRG 982 ==
LOC: ER 16:57 → ERHOLD 20:09 → 4TH 11-03 00:11 → OBSVTOIN 11-03 19:20
PROVIDERS: ADMIT Internal Medicine; ATTEND Internal Medicine
PROC: 0JQ00ZZ Repair Scalp Subcutaneous Tissue and Fascia, Open Approach (ICD-10-PCS; principal; 2024-11-03)
DX: R55 Syncope and collapse (principal); I48.20 Chronic atrial fibrillation, unspecified; N39.0 Urinary tract infection, site not specified; E86.0 Dehydration; E66.9 Obesity, unspecified; S01.81XA Laceration without foreign body of other part of head, initial encounter; R29.6 Repeated falls; Z91.81 History of falling; Z79.01 Long term (current) use of anticoagulants; Z68.31 Body mass index [BMI] 31.0-31.9, adult; Z79.890 Hormone replacement therapy; W18.30XA Fall on same level, unspecified, initial encounter; Y93.01 Activity, walking, marching and hiking; Y92.002 Bathroom of unspecified non-institutional (private) residence as the place of occurrence of the external cause; Y99.9 Unspecified external cause status
CPT/HCPCS: 12001; 36415; 70450; 70551; 71045; 72125; 80048; 80076; 81001; 83735; 83880; 84484; 85025; 85610; 87077; 87086; 87088; 87186; 93005; 96365; 99285; G0378; J0696; J7050